=== PATIENT | male | born 2000 | race Caucasian/White ===

== ENCOUNTER 2023-10-21 03:05 | Emergency (ER) | payer BC, MEDICAID ==
[~2023-10-21] VITALS: Ht 167.6 cm; Wt 100.0 kg
[2023-10-21 03:52] VITALS: BP 139/91; RESP 14; TEMP 99.1; O2SAT 96
[2023-10-21 04:00] VITALS: PULSE 107
== END 2023-10-21 04:29 | disposition left against medical advice (07) ==
LOC: ER 03:05
DX: Z53.21 Procedure and treatment not carried out due to patient leaving prior to being seen by health care provider (principal)
CPT/HCPCS: 99281